=== PATIENT | male | born 1950 | race Caucasian/White ===

== ENCOUNTER → 2021-09-12 | Outpatient (CLI) | payer OTHER ==
[~2021-09-12] MED LIST: AMLO10 PO; ASPI81CH PO; ATEN25 PO; CLOP75 PO; GABA300; GLIP10; GLIP5 PO; LISHYD1012; METF500 PO; METF500C; NAPR220; PANT20 PO; PARO30; Prinivil10 MG PO; Zocor20 MG PO
== END ==
LOC: LAB SHORT 18:06
DX: M54.9 Dorsalgia, unspecified (principal)
CPT/HCPCS: 87086